=== PATIENT | male | born 1965 | race Caucasian/White ===

== ENCOUNTER 2019-03-24 07:12 | Emergency (ER) | payer SELFPAY ==
[2019-03-24 07:29] VITALS: TEMP 98.3; BMI 26.4
--- NOTE | 2019-03-24 07:54 | PDOC ---
History of Present Illness - General Chief Complaint: Edema Stated Complaint: PAIN ON BOTH FEET Time Seen by Provider: 03/24/19 07:50 - History of Present Illness Initial Comments: 03/24/19 08:43 The patient is a 53 year old male who denies a significant medical history who presents for evaluation of a blister to his leg. The patient is accompanied by family who assist in providing the history. They note that the patient noticed a large blister to his right lower extremity extending from his ankle up his calf associated with pain prompting his presentation to the ED for further evaluation. He notes that he has been getting similar blisters over the past 6 years that usual self-resolve over various parts of his body however none as big as his current one. He otherwise denies fevers, chills, SOB, chest pain, nausea, vomiting, abdominal pain, or changes with urination or bowel movements. Past History - Past Medical History Allergies/Adverse Reactions: Allergies Allergy/AdvReac Type Severity Reaction Status Date / Time No Known Allergies Allergy Verified 03/24/19 07:17 Home Medications: Ambulatory Orders NK [No Known Home Medication] 03/24/19 COPD: No - Suicide/Smoking/Psychosocial Hx Smoking History: Current every day smoker Have you smoked in the past 12 months: Yes Number of Cigarettes Smoked Daily: 4 Information on smoking cessation initiated: No Hx Alcohol Use: No Drug/Substance Use Hx: No Review of Systems - Review of Systems Comments:: 03/24/19 08:49 Constitutional: No fevers, chills, fatigue, malaise HEENT: No Rhinorrhea, nasal congestion, visual changes Cardiovascular: No chest pain, syncope, palpitations, lightheadedness Respiratory: No Cough, SOB, Hemoptysis, Gastrointestinal: No Abdominal pain, Nausea, Vomiting, Constipation, Diarrhea, Melena Genitourinary: No Dysuria, Frequency, Urgency, Hesitancy, Hematuria, Flank pain Musculoskeletal: No Myalgia, arthralgia Skin: Blister to the right lower extremity. No rashes, itching, bruising, pallor Neurologic: No Headache, Dizziness, Numbness, Weakness, or Tingling Psychiatric: No Hallucinations. No SI or HI *Physical Exam - Vital Signs Last Vital Signs Temp Pulse Resp BP Pulse Ox 98.3 F 98 H 18 145/95 100 03/24/19 07:18 03/24/19 07:18 03/24/19 07:18 03/24/19 07:18 03/24/19 07:18 - Physical Exam Comments: 03/24/19 08:50 General Appearance: Nourished. No Apparent Distress HEENT: No Pharyngeal Erythema, Tonsillar Exudate, Tonsillar Erythema Neck: No Cervical Lymphadenopathy Respiratory/Chest: Lungs Clear, Normal Breath Sounds. No Crackles, Rales, Rhonchi, Wheezing Cardiovascular: Regular Rhythm, Regular Rate. No Murmur, Gallops, Rubs Gastrointestinal/Abdominal: Normal Bowel Sounds, Soft. No Guarding, Rebound, Tenderness Musculoskeletal: No CVA Tenderness Extremity: Tense Bullae noted extending from the right ankle to the mid-calf. Small Bullae noted to the left 5th toe. Scaring noted to the various parts of the skin of the arms and torso. Normal Capillary Refill Integumentary: Normal Color, Dry, Warm Neurologic: Fully Oriented, Alert, Normal Mood/Affect, Normal Response, ED Treatment Course - LABORATORY CBC & Chemistry Diagram: 03/24/19 09:13 03/24/19 09:13 Medical Decision Making - Medical Decision Making 03/24/19 08:55 The patient is a 53 year old male who denies a significant medical history who presents for evaluation of a blister to his leg. Differential includes but is not limited to: Drug Reaction vs. Autoimmune vs. Infectious. Given the patient' s history and physical exam, we are concerned for a possible autoimmune etiology of the patient's bullae. We will obtain a cbc, cmp, bnp, esr, crp to evaluate further. We will continue to monitor and reassess while here in the ED. 03/24/19 10:46 CBc, cmp, bnp are unremarkable. The patient's large bullae was cleansed with betadine and drained. Betadine soaked gauze was placed over the area and wrapped in Kerlex. We are comfortable discharging the patient home in stable condition. Patient made aware of impression and plan, return precautions discussed including but not limited to worsening pain or symptoms, fevers, or signs of infection, chest pain, respiratory distress, inability to tolerate oral intake, dehydration, syncope, or neurologic changes. The patient is to follow up with PMD as recommended tomorrow, follow up information provided and the patient has an appointment at 3pm. The patient is to take medications as instructed for duration of time and continue with supportive care, avoid triggers and precipitants. Patient is safe for outpatient follow-up. *DC/Admit/Observation/Transfer Diagnosis at time of Disposition: Bullae - Discharge Dispostion Disposition: HOME Condition at time of disposition: Stable Decision to Admit order: No - Referrals Referrals: Alejandro June MD [Staff Physician] - - Patient Instructions Printed Discharge Instructions: Blisters Additional Instructions: 1) Please follow-up with your primary care doctor tomorrow. You have a follow up appointment schedule tomorrow at 3pm. If you cannot follow up with your doctor within 1 week please return to the Emergency Department for any urgent issues. 2) Your laboratory results were normal here in the ER. 3) If you have any worsening of symptoms or any other concerns please return to the ER immediately. Return if worsening symptoms including fevers, headache, vomiting, visual or hearing disturbances, abdominal pain, chest pain, shortness of breath, syncope, dehydration, inability to take things by mouth/vomiting, altered mental status, or worsening concerning symptoms. 4) You are to remove the dressing placed on your leg tomorrow at your follow up appointment at 3pm wt Dr. June. It is extremely important that you keep that follow up appointment to be re-evaluated. 1) Por favor, jamaal un seguimiento con paulino mdico de atencin primaria maana. Tiene saqueo de citas de seguimiento maana a las 3 pm. Si no puede hacer un seguimiento con paulino mdico dentro de 1 semana, por favor regrese al Departamento de Emergencias para cualquier problema urgente. 2) Los resultados de paulino laboratorio jon normales aqu en Urgencias. 3) Si tiene algn empeoramiento de los sntomas o cualquier otra preocupacin, por favor regrese a la urgencia inmediatamente. Regrese si empeora los sntomas kari fiebre, dolor de jairo, vmitos, trastornos visuales o auditivos, dolor abdominal, dolor en el pecho, dificultad para respirar, sncope, deshidratacin , incapacidad para anne-marie cosas por va oral/vmitos, alteracin del estado mental o empeoramiento sntomas. 4) Usted debe quitarse el apsito colocado en paulino pierna maana en paulino jaskaran de seguimiento a las 3pm con el Dr. June. Es extremadamente importante que mantenga rl jaskaran de seguimiento para ser reevaluada. - Post Discharge Activity
--- NOTE | 2019-03-24 08:19 | PDOC ---
Attending Attestation - Resident Resident Name: Arnold Hong - ED Attending Attestation I have performed the following: I have examined & evaluated the patient, The case was reviewed & discussed with the resident, I agree w/resident's findings & plan, Exceptions are as noted - HPI HPI: 03/24/19 12:53 Reviewed Residents HPI - Physicial Exam PE: 03/24/19 12:53 Reviewed Residents PE - Medical Decision Making 03/24/19 12:54 53 years old with 6 year history of intermittent bullous lesions normally they are small and pop on their own he has several scar humphrey to his arms and chest with it happened in the past presents to the ED with large bullous lesion with no signs of infection to his right foot and a small 3-4 cm lesion to his left foot. Suspicious for autoimmune bullous lesions Blood work within normal limits not diabetic Given the large size of bullous lesion and discomfort drained at bedside covered with Betadine dressings. Patient has no insurance and no follow-up we have arranged for him to follow up with our clinic tomorrow at 3 PM Findings, the need for follow-up and strict return instructions discussed with patient.
[2019-03-24 09:42] LABS: BASO % 0.8 % (0-2.0); EOS % 0.1 % (0-4.5); HEMATOCRIT 44.3 % (35.4-49); HEMOGLOBIN 14.5 GM/dL (11.7-16.9); LYMPH % 14.4 % (8-40); MCH 28.8 pg (25.7-33.7); MCHC 32.7 g/dl (32.0-35.9); MEAN CELL VOLUME 87.9 fl (80-96); MEAN PLT VOLUME 8.1 fl (7.5-11.1); NEUT % 76.7 % (42.8-82.8); PLATELET COUNT 195 K/MM3 (134-434); RBC 5.04 M/mm3 (4.00-5.60); RDW 13.9 % (11.9-15.9); WHITE BLOOD COUNT 9.6 K/mm3 (4.0-10.0)
[2019-03-24 10:02] LABS: ALBUMIN 3.7 g/dl (3.4-5.0); BILIRUBIN,TOTAL 0.3 mg/dL (0.2-1); BLOOD UREA NITROGEN 22.9 mg/dL (7-18); CALCIUM 8.6 mg/dL (8.5-10.1); CREATININE 1.2 mg/dL (0.55-1.3); POTASSIUM 4.3 mmol/L (3.5-5.1); TOT PROT 6.8 g/dl (6.4-8.2)
[2019-03-24 12:10] VITALS: BP 139/75; PULSE 70
== END 2019-03-24 12:10 | disposition home or self-care (01) ==
LOC: JER 07:12
DX: R23.8 Other skin changes (principal); S80.821A Blister (nonthermal), right lower leg, initial encounter; X58.XXXA Exposure to other specified factors, initial encounter; Y93.89 Activity, other specified; Y92.89 Other specified places as the place of occurrence of the external cause; Y99.8 Other external cause status
CPT/HCPCS: 36415; 80053; 83880; 85025; 85651; 86140; 99284-25